=== PATIENT | female | born 1960 | race Caucasian/White ===

== ENCOUNTER 2020-06-18 10:03 | Day surgery (SDC) | payer MEDICARE ==
[2020-06-18] MEDS ORDERED: Sodium Chloride 0.9(Preservative Free) 10 ML IJ ONE (10:04)
[2020-06-18] MEDS ORDERED: Depo-Medrol 40 MG/ML IM ONE (10:04)
[2020-06-18] MEDS ORDERED: Ketamine HCl 50 MG/ML ONE (10:55)
[2020-06-18] MEDS ORDERED: DIPRIVAN 200 MG/20 ML IV ONE (10:55)
--- NOTE | 2020-06-18 12:51 | XRAY ---
Indication: Right L4-S1 transforaminal JOSEFINA. Intraoperative fluoroscopy was provided for 38 seconds. 4 digital spot images submitted for interpretation demonstrates posterior needle tips projecting over the expected right L4 and L5 nerve roots. Small amount of contrast injected for needle tip placement. Correlate with intraoperative findings/report.
--- NOTE | 2020-06-18 12:56 | XRAY ---
38 seconds fluoroscopy time in surgery for right L3-S1 transforaminal JOSEFINA.
[2020-06-18] MEDS ORDERED: Lactated Ringers 1,000 ML IV ONE (14:04)
== END 2020-06-18 11:26 | disposition home or self-care (01) ==
LOC: SDC-PAIN 10:03
PROVIDERS: ATTEND Psychiatry & Neurology Pain Medicine
DX: M54.16 Radiculopathy, lumbar region (principal); E11.9 Type 2 diabetes mellitus without complications; J44.9 Chronic obstructive pulmonary disease, unspecified; E03.9 Hypothyroidism, unspecified; I25.10 Atherosclerotic heart disease of native coronary artery without angina pectoris; K21.9 Gastro-esophageal reflux disease without esophagitis; K44.9 Diaphragmatic hernia without obstruction or gangrene; F41.8 Other specified anxiety disorders; Z79.899 Other long term (current) drug therapy
CPT/HCPCS: 64483; 64484; 72100; 77003; 82947; J1030; J2704; Q9966

== ENCOUNTER 2021-01-25 13:42 | Emergency (ER) | payer MEDICARE ==
[2021-01-25 14:59] LABS: Absolute Neutrophil Ct (ANC) 2.63 (1.4-6.9); BASOPHIL % 0.3 % (0.0-0.4); Basophil (Absolute #) 0.01 (0-0.4); Eosinophil (Absolute #) 0 (0-0.5); Hemoglobin 12.9 gm/dl (12.0-16.0); Lymphocyte (Absolute #) 0.52 (1.0-4.6); Lymphocytes % 15.5 % (24.0-44.0); Mean Cell Volume 90.9 fl (78-100); Mean Corpuscular Hemoglobin 29.3 pg (26-32); Mean Corpuscular Hgb Concent. 32.3 g/dl (32-36); Mean Platelet Volume 10.8 fl (7.5-11.0); Neutrophil % 78.2 % (36.0-66.0); Platelet Count 192 K/mm3 (150-450); Red Cell Distribution Width 14.5 % (11.5-14.0); White Blood Count 3.4 K/mm3 (4.0-10.5)
[2021-01-25 15:03] VITALS: O2SAT 94
--- NOTE | 2021-01-25 15:17 | ERPHSYRPT ---
- History of Present Illness Time Seen by Provider: 01/25/21 14:11 Source: patient Exam Limitations: no limitations Patient Subjective Stated Complaint: Pt has asthma and she thinks that her lungs are acting up due to ther asthma and also that she vomited this morning but thinks that was due to her bitter coffee upsetting her stomach and her has covid so her kids wanted her to come and get checked out... Triage Nursing Assessment: Pt came to the ER with her , vitals wnl, denies pain, no covid symptoms, lives with her who is covid positive, pulses normal, skin n/w/d, unable to get a deep breath but thinks that is due to her asthma, Physician History: 60 years old female with history of coronary artery disease status post stenting, hypertension, hyperlipidemia, diabetes mellitus, asthma with a positive contact COVID-19 presented in the ER with 3 days history of URI symptoms initially followed by mild dry cough and no shortness of breath. Patient reports no fever or chills but feels weak fatigued and tired with lack of energy to do her routine activities. Denies any chest pain or palpitations. has similar symptoms. No desaturation noticed at home. This morning she had a coffee which did not taste well and got nauseated followed by 1 episode of vomiting but denies any abdominal pain diarrhea otherwise. Timing/Duration: day(s) (3), gradual onset Cough Quality/Degree: mild, dry cough Possible Cause: no prior episodes, illness exposure Associated Symptoms: cough, muscle aches, nasal congestion, nasal drainage, sinus infection, No fever, No chills, No chest pain/soreness, No facial pain, No headache, No lightheadedness, No shortness of breath, No wheezing Allergies/Adverse Reactions: atorvastatin [From Lipitor] Allergy (Verified 01/25/21 14:02) beclomethasone [From Qvar] Allergy (Verified 01/25/21 14:02) dulaglutide [From Trulicity] Allergy (Verified 01/25/21 14:02) fluticasone [From Flovent HFA] Allergy (Verified 01/25/21 14:02) gemfibrozil Allergy (Verified 01/25/21 14:02) ketamine Allergy (Verified 01/25/21 14:02) levothyroxine Allergy (Verified 01/25/21 14:02) lisinopril Allergy (Verified 01/25/21 14:02) Home Medications: Amlodipine Besylate 10 mg PO DAILY 01/25/21 [History] Aspirin 81 gm Chew [Baby Aspirin 81 mg Chew] 81 mg PO DAILY 01/25/21 [History] Clopidogrel Bisulfate 75 mg [PLAVIX 75 MG Tablet] 75 mg PO DAILY 01/25/21 [History] Ezetimibe 10 mg [Zetia 10 MG] 10 mg PO DAILY 01/25/21 [History] Fenofibrate 160 mg PO DAILY 01/25/21 [History] Insulin Aspart (Niacinamide) [Fiasp 100 Unit/ml Vial] 11 units SQ TID 01/25/21 [History] Insulin Degludec [Tresiba] 12 unit SQ DAILY 01/25/21 [History] Levothyroxine Sodium 88 mcg PO DAILY 01/25/21 [History] Rosuvastatin Calcium [Crestor] 5 mg PO DAILY 01/25/21 [History] carvediloL [Carvedilol] 25 mg PO BID 01/25/21 [History] Travel Risk - International Travel Have you traveled outside of the country in past 3 weeks: No - Coronavirus Screening Are you exhibiting any of the following symptoms?: No Close contact with a COVID-19 positive Pt in past 14-21 Days: Yes - Vaccine Status Have you recieved a Covid-19 vaccination: No - Review of Systems Constitutional: Fatigue, Weakness Eyes: No Symptoms Ears, Nose, & Throat: Nose Congestion, Sinus Drainage, Throat Pain Respiratory: Cough, No Dyspnea, No Dyspnea on Exertion (LARSON), No Wheezing Cardiac: No Symptoms Abdominal/Gastrointestinal: Nausea, Vomiting, No Abdominal Pain, No Diarrhea Genitourinary Symptoms: No Symptoms Musculoskeletal: Myalgias Skin: No Symptoms Neurological: No Symptoms Psychological: No Symptoms Endocrine: No Symptoms Hematologic/Lymphatic: No Symptoms Immunological/Allergic: No Symptoms - Past Medical History Pertinent Past Medical History: Yes Cardiac History: Myocardial Infarction ([place]) Respiratory History: Asthma Endocrine Medical History: Diabetes Type II, Hypothyroidism - Past Surgical History Past Surgical History: Yes Cardiac: Cardiac Stent Female Surgical History: Hysterectomy, Tubal Ligation Other Surgical History: breast - Social History Smoking Status: Never smoker Exposure to second hand smoke: No Drug Use: none Patient Lives Alone: No - Female History Hx Now: No - Nursing Vital Signs Nursing Vital Signs: Initial Vital Signs Temperature 95.6 F 01/25/21 13:49 Pulse Rate 62 01/25/21 13:49 Blood Pressure 138/64 01/25/21 13:49 O2 Sat by Pulse Oximetry 97 01/25/21 13:49 Pain Scale Pain Intensity 0 - Physical Exam General Appearance: no apparent distress, alert, anxiety Eye Exam: PERRL/EOMI, eyes nml inspection Ears, Nose, Throat Exam: TMs normal, pharyngeal erythema Neck Exam: normal inspection, non-tender, full range of motion Respiratory Exam: normal breath sounds, lungs clear Cardiovascular Exam: regular rate/rhythm, normal heart sounds Gastrointestinal/Abdomen Exam: soft, normal bowel sounds, No tenderness Back Exam: normal inspection, normal range of motion Extremity Exam: normal inspection, normal range of motion Neurologic Exam: alert, oriented x 3, cooperative, early childhood assistant II-XII nml as tested Skin Exam: normal color SpO2 Interpretation: normal SpO2: 94 O2 Delivery: Room Air - Course EKG Interpreted by Me: RATE (60), Sinus Rhythm, Left [place] Deviation, NORMAL INTERVALS, Q-wave Ordered Tests: Active Orders 24 hr Category Date Time Status Process Development Manager STAT Care 01/25/21 14:20 Completed EKG-ER Only STAT Care 01/25/21 14:19 Completed IV Insertion STAT Care 01/25/21 14:19 Completed CHEST 1 VIEW (PORTABLE) Stat Exams 01/25/21 14:20 Completed BLOOD CULTURE Stat Lab 01/25/21 14:40 Received CBC W DIFF Stat Lab 01/25/21 14:19 Completed CMP Stat Lab 01/25/21 15:07 Completed LIPASE Stat Lab 01/25/21 15:07 Completed MAGNESIUM Stat Lab 01/25/21 15:07 Completed NT PRO BNP Stat Lab 01/25/21 15:07 Completed TROPONIN Q3H Lab 01/25/21 15:07 Completed Lab/Rad Data: Laboratory Result Diagrams 01/25/21 14:19 01/25/21 15:07 Laboratory Results 01/25/21 01/25/21 01/25/21 Range/Units 15:07 15:07 14:19 WBC 3.4 L (4.0-10.5) K/mm3 RBC 4.40 (4.1-5.4) M/mm3 Hgb 12.9 (12.0-16.0) gm/dl Hct 40.0 (35-47) % MCV 90.9 (78-100) fl MCH 29.3 (26-32) pg MCHC 32.3 (32-36) g/dl RDW 14.5 H (11.5-14.0) % Plt Count 192 (150-450) K/mm3 MPV 10.8 (7.5-11.0) fl Gran % 78.2 H (36.0-66.0) % Eos # (Auto) 0 (0-0.5) Absolute Lymphs (auto) 0.52 L (1.0-4.6) Absolute Monos (auto) 0.20 (0.0-1.3) Lymphocytes % 15.5 L (24.0-44.0) % Monocytes % 6.0 (0.0-12.0) % Eosinophils % 0.0 (0.00-5.0) % Basophils % 0.3 (0.0-0.4) % Absolute Granulocytes 2.63 (1.4-6.9) Basophils # 0.01 (0-0.4) Sodium 135 L (137-145) mmol/L Potassium 4.3 (3.5-5.1) mmol/L Chloride 98 (98-107) mmol/L Carbon Dioxide 25 (22-30) mmol/L Anion Gap 16.4 H (5-15) MEQ/L BUN 24 H (7-17) mg/dL Creatinine 0.77 (0.52-1.04) mg/dL Estimated GFR > 60.0 ML/MIN Glucose 246 H (74-106) mg/dL Calcium 9.4 (8.4-10.2) mg/dL Magnesium 1.8 (1.6-2.3) mg/dL Total Bilirubin 0.50 (0.2-1.3) mg/dL AST 45 H (14-36) U/L ALT 34 (0-35) U/L Alkaline Phosphatase 45 (38-126) U/L Troponin I < 0.012 (0.000-0.034) ng/mL NT-Pro-B Natriuret Pep 440 (0-900) pg/mL Serum Total Protein 6.9 (6.3-8.2) g/dL Albumin 4.1 (3.5-5.0) g/dL Lipase 150 (23-300) U/L Slides for Path Review YES - Progress Progress: re-examined Air Movement: good Progress Note: 01/25/21 16:11 60 years old is evaluated for Covid symptoms. Does not have any shortness of breath, not in any distress. Lungs clear to auscultation. Saturation around 97% here and at home. Grossly unremarkable lab work except for elevated glucose and mild dehydration which she is encouraged to drink plenty of fluids. Chest x-ray some questionable airspace disease, I will give her Z-Yan and she does have inhaler which she is advised to use as recommended. Discussed signs symptoms of worsening needing return to ER which she seems understanding. At this point I do not think she needs to be admitted or any other work-up and is stable for discharge. Blood Culture(s) Obtained: Yes Antibiotics given: Yes Counseled pt/family regarding: lab results, diagnosis, need for follow-up, rad results - Departure Departure Disposition: Home Clinical Impression: Ongoing symptomatic disease due to COVID-19 virus, Bronchitis Condition: Stable Critical Care Time: No Referrals: MARIELOS LOWE MD [Primary Care Provider] - (1-2 days for reevaluation) Instructions: Acute Bronchitis, Coronavirus Disease 2019 (COVID-19) (DC) Additional Instructions: Use inhaler which you have at home as recommended. Follow-up with primary care for reevaluation. Monitor your oxygen saturation at home and if it drops below 90, return to ER. Otherwise follow-up with your primary care for reevaluation in 1 to 2 days. Return to ER for increasing shortness of breath/cough/fever chills, chest pain or worsening weakness. Prescriptions: Azithromycin 250 mg [Zithromax 250 MG TABLET] 250 mg PO ZPACK #6 tablet
[2021-01-25 15:21] LABS: ALBUMIN 4.1 g/dL (3.5-5.0); ALKALINE PHOSPHATASE 45 U/L (38-126); ANION GAP 16.4 MEQ/L (5-15); BLOOD UREA NITROGEN 24 mg/dL (7-17); CHLORIDE 98 mmol/L (98-107); Calcium 9.4 mg/dL (8.4-10.2); Carbon Dioxide 25 mmol/L (22-30); Creatinine 1 0.77 mg/dL (0.52-1.04); EST GLOMERULAR FILTRATION RATE > 60.0 ML/MIN; Glucose 246 mg/dL (74-106); LIPASE 150 U/L (23-300); MAGNESIUM 1.8 mg/dL (1.6-2.3); NT PRO BNP 440 pg/mL (0-900); Potassium 4.3 mmol/L (3.5-5.1); SGOT/AST 45 U/L (14-36); SGPT/ALT 34 U/L (0-35); SODIUM 135 mmol/L (137-145); Total Protein 6.9 g/dL (6.3-8.2)
[2021-01-25 15:23] LABS: Slide Review 1 YES
[2021-01-25 16:18] VITALS: BP 141/65; PULSE 60
--- NOTE | 2021-01-25 18:08 | XRAY ---
Indication: Short of breath. Suspect Covid 19. Comparison: None Portable chest demonstrates hazy right base interstitial alveolar opacity. Remaining heart and lungs unremarkable with incidental left hilar calcified nodes. Bony thorax intact.
== END 2021-01-25 16:30 | disposition home or self-care (01) ==
LOC: ED 13:42
DX: Z20.822 Contact with and (suspected) exposure to COVID-19 (principal); J40 Bronchitis, not specified as acute or chronic; I10 Essential (primary) hypertension; E11.9 Type 2 diabetes mellitus without complications
CPT/HCPCS: 36000; 36415; 71045; 80053; 83690; 83735; 83880; 84484; 85025; 87040; 93005; 93041; 99284; U0003

== ENCOUNTER 2023-06-22 07:04 | Day surgery (SDC) | payer MEDICARE ==
[2023-06-22] MEDS ORDERED: Depo-Medrol 40 MG/ML IM ONE (07:05)
[2023-06-22] MEDS ORDERED: BUPIVACAINE 0.5% VIAL IJ ONE (07:05)
[2023-06-22] MEDS ORDERED: DIPRIVAN 200 MG/20 ML IV ONE (08:31)
--- NOTE | 2023-06-22 10:03 | XRAY ---
Indication: Bilateral SI joint injection. Intraoperative fluoroscopy provided for 16 seconds. 4 digital spot image submitted for interpretation demonstrates posterior needle tip projecting over left and right SI joint. Correlate with intraoperative findings/report.
--- NOTE | 2023-06-22 10:57 | XRAY ---
16 seconds of fluoroscopy was used in surgery for a bilateral sacroiliac joint injection.
[2023-06-22] MEDS ORDERED: Lactated Ringers 1,000 ML IV ONE (11:06)
== END 2023-06-22 08:59 | disposition home or self-care (01) ==
LOC: SDC-PAIN 07:04
PROVIDERS: ATTEND Psychiatry & Neurology Pain Medicine
DX: M46.1 Sacroiliitis, not elsewhere classified (principal); E11.9 Type 2 diabetes mellitus without complications
CPT/HCPCS: 27096; 72202; 77002; 82947; 93005; J1030; J2704; G0260

== ENCOUNTER 2025-03-01 06:00 | Day surgery (SDC) | payer MEDICARE ==
[2025-03-01 06:15] VITALS: RESP 18
[2025-03-01 06:38] LABS: Calcium 9.9 mg/dL (8.4-10.2); Carbon Dioxide 25.0 mmol/L (22-30); Creatinine 1 0.55 mg/dL (0.52-1.04); EST GLOMERULAR FILTRATION RATE 102.9 ML/MIN; Glucose 154.0 mg/dL (74-106); Potassium 4.2 mmol/L (3.5-5.1)
[2025-03-01] MEDS ORDERED: propofoL IV ONE ×2 (07:02→07:15)
[2025-03-01 07:56] VITALS: PULSE 67; TEMP 96.7; O2SAT 99
[2025-03-01 08:02] VITALS: BP 133/70
--- NOTE | 2025-03-04 08:25 | OP ---
SURGERY DATE/TIME: 03/01/2025 [id number] PREOPERATIVE DIAGNOSES: Left lower quadrant abdominal pain and family history of colitis. POSTOPERATIVE DIAGNOSIS: Normal colon. PROCEDURE: Colonoscopy. SURGEON: Alber Hale MD ANESTHESIA: Medication given by the anesthesia department. INDICATIONS: The patient is a 64-year-old white female presenting now for complaints of left lower quadrant abdominal pain. She reports at times she feels the stool actually coming down from above the colon. Patient also reports 2 family members with colitis and a grandmother that of colon cancer. The patient was felt to need to have endoscopic evaluation. She was apprised of the risks of the procedure including risk of perforation, phlebitis, untoward reaction to medication, bleeding, and missed lesions. The patient verbalized her understanding and desired to have the procedure performed. DESCRIPTION OF PROCEDURE: The patient was given medication by the anesthesia department. She had continuous pulse oximetry, ECG monitoring, and intermittent blood pressure monitoring during the examination. She was placed in left lateral decubitus position. Digital rectal examination was performed and revealed normal anal sphincter tone and no masses. The flexible Olympus videocolonoscope was used to intubate the rectum. A view of the colon was developed sequentially to the cecum including visions of the ileocecal valve and appendiceal orifice. No mucosal lesion was noted upon insertion or withdrawal. The scope was removed. Patient tolerated the procedure well and sent back to outpatient recovery in good condition. The prep was noted to be fair.
== END 2025-03-01 08:14 | disposition home or self-care (01) ==
LOC: SDC 06:00
PROVIDERS: ATTEND Family Medicine
DX: R10.32 Left lower quadrant pain (principal); Z83.79 Family history of other diseases of the digestive system; Z80.0 Family history of malignant neoplasm of digestive organs; I10 Essential (primary) hypertension